=== PATIENT | male | born 1995 | race Caucasian/White ===

== ENCOUNTER 2018-04-16 15:50 | Emergency (ER) | payer OTHER ==
[~2018-04-16] VITALS: Ht 193 cm; Wt 77.1 kg
[~2018-04-16 15:50] MED LIST: ACETAMINOPHEN-1 EAC1 PO; BENADRYL25 MG; IBUPROFEN 800800 M1 PO; IBUPROFEN 800800 MG PO; MEDROLDOSEPACK PO; NAPROSYN500 MG PO; NORCO 5-325 TA1 EACH PO
[2018-04-16 16:44] LABS: INFLUENZA A ANTIGEN None Detected (None Detect); INFLUENZA B ANTIGEN None Detected (None Detect)
[2018-04-16] MEDS ORDERED: NAPROSYN500 MG PO (17:00)
[2018-04-16 17:03] VITALS: BP 106/70
== END 2018-04-16 17:37 | disposition home or self-care (01) ==
LOC: M.ERS 15:50
PROVIDERS: Physician Assistant
DX: J02.9 Acute pharyngitis, unspecified (principal); J06.9 Acute upper respiratory infection, unspecified; R42 Dizziness and giddiness; F17.200 Nicotine dependence, unspecified, uncomplicated

== ENCOUNTER 2018-08-08 12:57 | Emergency (ER) | payer OTHER ==
[~2018-08-08] VITALS: Ht 188 cm; Wt 77.1 kg
[2018-08-08] MEDS ORDERED: PENICILLIN VK500 MG PO (13:11)
[2018-08-08] MEDS ORDERED: HYDROCODON-ACE1 EAC7 PO (13:11)
[2018-08-08] MEDS ORDERED: IBUPROFEN 800800 MG PO (13:11)
[2018-08-08 13:14] VITALS: BP 111/67
== END 2018-08-08 13:14 | disposition home or self-care (01) ==
LOC: M.ERS 12:57
DX: K08.89 Other specified disorders of teeth and supporting structures (principal)

== ENCOUNTER 2018-08-28 15:59 | Emergency (ER) | payer OTHER ==
[~2018-08-28] VITALS: Ht 190.5 cm; Wt 77.1 kg
[~2018-08-28 15:59] MED LIST changes: +HYDROCODON-ACE1 EAC7 PO; +PENICILLIN VK500 MG PO
[2018-08-28 16:03] VITALS: BP 117/65
[2018-08-28] MEDS ORDERED: ACETAMINOPHEN-1 EAC1 PO (16:12)
[2018-08-28] MEDS ORDERED: CLEOCIN HCL300 MG PO (16:12)
== END 2018-08-28 16:29 | disposition home or self-care (01) ==
LOC: M.ERS 15:59
DX: K08.89 Other specified disorders of teeth and supporting structures (principal)

== ENCOUNTER 2019-02-21 12:04 | Emergency (ER) | payer OTHER ==
[~2019-02-21] VITALS: Ht 190.5 cm; Wt 68.0 kg
[~2019-02-21 12:04] MED LIST changes: +CLEOCIN HCL300 MG PO
[2019-02-21] MEDS ORDERED: BACTRIM DS TAB1 EACH PO (12:33)
[2019-02-21] MEDS ORDERED: NORCO 5-325 TA1 EAC1 PO (12:33)
[2019-02-21 12:47] VITALS: BP 121/66
== END 2019-02-21 12:47 | disposition home or self-care (01) ==
LOC: M.ERS 12:04
DX: L03.116 Cellulitis of left lower limb (principal)

== ENCOUNTER 2020-12-20 18:32 | Emergency (ER) | payer OTHER ==
[~2020-12-20] VITALS: Ht 195.6 cm; Wt 72.6 kg
[~2020-12-20 18:32] MED LIST changes: +BACTRIM DS TAB1 EACH PO; +IBU600 MG PO; +IBUPROFEN 600600 M1 PO; +NORCO 5-325 TA1 EAC1 PO; +PERIDEX 0.12%473 M1 SWISH&SPIT
[2020-12-20 19:11] LABS: URINE BLOOD 2+ (Negative); URINE COLOR YELLOW; URINE GLUCOSE-RANDOM NEGATIVE (Negative); URINE KETONES NEGATIVE (Negative); URINE LEUKOCYTES-REFLEX 1+ (Negative); URINE NITRITE-REFLEX NEGATIVE (Negative); URINE PROTEIN 1+ (Negative); URINE SPECIFIC GRAVITY >= 1.030 (1.005-1.030); URINE UROBILINOGEN 0.2 E.U./dl (0.2-1.0)
[2020-12-20 19:17] LABS: ICTOTEST (BILI CONFIRMATORY) Negative (Negative); URINE BILIRUBIN 1+ (Negative); URINE CLARITY CLOUDY
[2020-12-20 19:25] LABS: SQUAMOUS 0-3 Few /LPF (0-3)
[2020-12-20 19:26] LABS: BACTERIA-REFLEX None Seen /HPF (None Seen); CASTS None Seen /LPF (None Seen); CRYSTALS None Seen /LPF (None Seen); URINE RBC 3-10 Few /HPF (0-2); URINE WBC-REFLEX >25 Many /HPF (0-5)
[2020-12-20] MEDS ORDERED: CEPHALEXIN500 MG PO (19:37)
[2020-12-20 19:51] VITALS: BP 122/67
== END 2020-12-20 19:51 | disposition home or self-care (01) ==
LOC: M.ERS 18:32
PROVIDERS: Physician Assistant
DX: N39.0 Urinary tract infection, site not specified (principal)

== ENCOUNTER 2021-03-28 17:57 | Emergency (ER) | payer OTHER ==
[~2021-03-28] VITALS: Ht 195.6 cm; Wt 72.6 kg
[~2021-03-28 17:57] MED LIST changes: +CEPHALEXIN500 MG PO
[2021-03-28 20:39] VITALS: BP 125/75
== END 2021-03-28 20:40 | disposition home or self-care (01) ==
LOC: M.ERS 17:57
DX: R61 Generalized hyperhidrosis (principal); Z20.822 Contact with and (suspected) exposure to COVID-19